=== PATIENT | female | born 1995 | race Caucasian/White ===

== ENCOUNTER 2017-06-06 13:21 | Emergency (ER) | payer OTHER ==
[~2017-06-06] VITALS: Ht 172.7 cm; Wt 68.0 kg
[2017-06-06 13:23] VITALS: BP 117/64
--- NOTE | 2017-06-06 13:41 | NUR ---
SWAB DONE FOR STREP AND PUT IN THE SPECIMEN CONTAINER
--- NOTE | 2017-06-06 13:48 | NUR ---
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 AAOX4 WITH EVEN AND STEADY GAIT; LUNGS CLEAR BL; HR EVEN AND REGULAR; PATIENT STATES PAIN OF 8/10 AT THIS TIME; PATIENT POSITIONED FOR COMFORT; ER MD MADE AWARE OF PT STATUS.
[2017-06-06 14:00] VITALS: BP 112/68
== END 2017-06-06 14:00 | disposition home or self-care (01) ==
LOC: MED 13:21
DX: J02.0 Streptococcal pharyngitis (principal)
CPT/HCPCS: 87081; 99283

== ENCOUNTER 2017-10-18 11:49 | Emergency (ER) | payer OTHER ==
[~2017-10-18] VITALS: Ht 172.7 cm; Wt 70.3 kg
[2017-10-18 12:11] VITALS: BP 119/68
[2017-10-18 14:36] VITALS: BP 119/68
== END 2017-10-18 14:35 | disposition home or self-care (01) ==
LOC: MED 11:49
DX: N39.0 Urinary tract infection, site not specified (principal); Z88.1 Allergy status to other antibiotic agents; R11.0 Nausea
CPT/HCPCS: 81002; 81025; 99283

== ENCOUNTER 2017-10-24 15:16 | Emergency (ER) | payer OTHER ==
[~2017-10-24] VITALS: Ht 172.7 cm; Wt 68.0 kg
[2017-10-24 15:21] VITALS: BP 116/77
--- NOTE | 2017-10-24 16:18 | NUR ---
Patient ambulated to bed 9. RN evaluating patient at bedside.
--- NOTE | 2017-10-24 16:20 | NUR ---
PT BIB SELF C/O SACRAL PAIN 08/16 S/P MECH FALL 3 WEEKS AGO. AGGREVATED POSITION CHANGE. "I GOT DRUNK AND FELL ONTO MY BUTT AND DIDNT THINK ANYTHING OF IT UNTIL IT STARTED HURTING." VSS; PATIENT POSITIONED FOR COMFORT; HOB ELEVATED; BEDRAILS UP X2; BED DOWN. ER MD MADE AWARE OF PT STATUS.
[2017-10-24 17:52] VITALS: BP 116/77
== END 2017-10-24 17:53 | disposition home or self-care (01) ==
LOC: MED 15:16
DX: M53.3 Sacrococcygeal disorders, not elsewhere classified (principal); Z88.1 Allergy status to other antibiotic agents
CPT/HCPCS: 72220; 99284

== ENCOUNTER 2017-10-28 02:49 | Emergency (ER) | payer OTHER ==
[~2017-10-28] VITALS: Ht 172.7 cm; Wt 68.0 kg
[2017-10-28 02:54] VITALS: BP 108/60
--- NOTE | 2017-10-28 02:54 | NUR ---
TO BED # 9 AMBULATORY, REPORT GIVEN TO NIKHIL RN
--- NOTE | 2017-10-28 03:00 | NUR ---
PATIENT IS A 22 Y/O FEMALE WHO PRESENTS TO THE ED C/O URINARY BURNING. PT STATES THAT SHE WAS SEEN LAST WEEK AND FINISHED ANTIBIOTIC RX, AND NOW RETURNED. PT REPORTS 10/10 URINARY BURNING PAIN THAT DOES NOT RADIATE. PT DENIES CP, SOB, N/V/D. PT AWAKE AND ALERT, RR EVEN/UNLABORED. PT REPOSITIONED FOR COMFORT, BED IN LOWEST POSITION. ER MD DR. ANDREWS NOTIFIED. WILL CONTINUE TO MONITOR.
[2017-10-28] MEDS ORDERED: KETOROLAC 60 MG/2 ML VIAL IM ONE (03:15)
[2017-10-28 03:30] VITALS: BP 119/65
--- NOTE | 2017-10-28 03:30 | NUR ---
Patient discharged with v/s stable. Written and verbal after care instructions given and explained. Patient alert, oriented and verbalized understanding of instructions. Ambulatory with steady gait. All questions addressed prior to discharge. ID band removed. Patient advised to follow up with PMD. Rx of MOTRIN 800MG AND CIPRO 500MG given. Patient educated on indication of medication including possible reaction and side effects. Opportunity to ask questions provided and answered.
== END 2017-10-28 03:30 | disposition home or self-care (01) ==
LOC: MED 02:49
DX: N39.0 Urinary tract infection, site not specified (principal); Z88.1 Allergy status to other antibiotic agents
CPT/HCPCS: 81002; 81025; 87086; 96372; 99283; J1885

== ENCOUNTER 2017-11-29 12:44 | Inpatient (IN) | payer OTHER ==
[~2017-11-29] VITALS: Ht 172.7 cm; Wt 67.8 kg
[2017-11-29 13:06] VITALS: BP 111/80
--- NOTE | 2017-11-29 13:10 | NUR ---
22 Y/O F W/C/O LEFT LOWER QUADRANT ABDOMINAL PAIN & LEFT LOWER BACK PAIN X 2 HOURS AGO. PT DENIES N/V/D; SKIN IS PINK/WARM/DRY; AAOX4, PERRL, WITH EVEN AND STEADY GAIT; LUNGS CLEAR BL, BREATHING UNLABORED; HR EVEN AND REGULAR, BL PERIPHERAL PULSES PRESENT; BS ACTIVE X4, NO TENDERNESS TO PALPATION, NO HEPATOSPLENOMEGALLY PALPATED, RESONANT TO PERCUSSION; PT DENIES ANY FEVER, CP, SOB, OR COUGH AT THIS TIME; PT STATES 10/10 PAIN AT THIS TIME; VSS; PATIENT POSITIONED FOR COMFORT; HOB ELEVATED; BEDRAILS UP X2; BED DOWN.
--- NOTE | 2017-11-29 13:12 | NUR ---
PT AMBULATES TO BED 6
--- NOTE | 2017-11-29 13:32 | NUR ---
PT REFUSING TO PROVIDE URINE SAMPLE AT THIS TIME
[2017-11-29] MEDS ORDERED: NACL 0.9% 1,000 ML IV SCH (14:02)
[2017-11-29] MEDS ORDERED: KETOROLAC 30 MG/ML VIAL IVP ONE (14:05)
[2017-11-29] MEDS ORDERED: ONDANSETRON 4 MG/2 ML VIAL IVP ONE (14:05)
[2017-11-29 14:36] LABS: BASOPHILS % (AUTO) 0.2 % (0.0-2.0); EOSINOPHILS # (AUTO) 0.1 K/uL (0-0.4); EOSINOPHILS % (AUTO) 0.6 % (0.0-4.0); HEMATOCRIT 42.2 % (36-48); LYMPHOCYTES # (AUTO) 1.3 K/uL (2.5-16.5); LYMPHOCYTES % (AUTO) 9.5 % (20.5-51.1); MEAN CORPUSCULAR HEMOGLOBIN 30 pg (27-31); MEAN CORPUSCULAR HGB CONC 33 g/dL (33-37); MEAN CORPUSCULAR VOLUME 90.9 fL (80-94); MONOCYTES # (AUTO) 0.6 K/uL (0.8-1.0); MONOCYTES % (AUTO) 4.6 % (1.7-9.3); NEUTROPHILS # (AUTO) 11.8 K/uL (1.8-7.7); NEUTROPHILS % (AUTO) 85.1 % (42.2-75.2); PLATELET COUNT (AUTO) 188 K/uL (140-450); RED BLOOD CELL COUNT(AUTO) 4.64 MIL/uL (4.20-5.40); RED CELL DISTRIBUTION WIDTH 12.9 % (11.6-13.7); WHITE BLOOD COUNT (AUTO) 13.8 K/uL (4.8-10.8)
--- NOTE | 2017-11-29 15:00 | NUR ---
NO S/S OF DISTRESS, VSS, DENIES PAIN.
[2017-11-29 15:54] LABS: APPEARANCE,URINE CLOUDY (CLEAR); COLOR,URINE YELLOW (YELLOW)
[2017-11-29 15:55] LABS: BLOOD, URINE 3+ (NEGATIVE); UGLUCOSE NEGATIVE (NEGATIVE)
[2017-11-29 15:56] LABS: BILIRUBIN,URINE NEGATIVE (NEGATIVE); LEUKOCYTE ESTERASE ,URINE 3+ (NEGATIVE); NITRITE, URINE NEGATIVE (NEGATIVE)
[2017-11-29 16:03] LABS: RBC,URINE >100 /HPF (0-5)
[2017-11-29 16:19] LABS: ANION GAP 10.5 (8-16); CARBON DIOXIDE 26.6 mmol/L (21-32); CREATININE 1.1 mg/dL (0.6-1.3); POTASSIUM 4.1 mmol/L (3.5-5.1)
[2017-11-29 16:20] LABS: ALBUMIN 3.9 g/dL (3.4-5.0)
[2017-11-29] MEDS ORDERED: LEVOFLOXACIN 500 MG/D5W PREMIX 100 ML IV ONE (16:45)
[2017-11-29] MEDS ORDERED: ACETAMINOPHEN 325 MG TAB PO PRN (18:05)
[2017-11-29] MEDS ORDERED: HYDROcodone/APAP 5/325 MG 1 TAB TAB PO PRN (18:05)
[2017-11-29] MEDS ORDERED: ONDANSETRON 4 MG/2 ML VIAL IVP PRN (18:05)
[2017-11-29] MEDS ORDERED: MORPHINE SULFATE 4 MG/ML SYR IVP PRN (18:05)
[2017-11-29] MEDS ORDERED: KETOROLAC 15 MG/ML VIAL IVP PRN (18:10)
--- NOTE | 2017-11-29 18:33 | NUR ---
PT TAKEN TO THE FLOOR VIA WHEELCHAIR BY DYLLAN CAMERON
--- NOTE | 2017-11-29 18:35 | NUR ---
Patient will be admitted to care of DR. CROFT. Admited to MED/SURG. Will go to [id number]. Belongings list completed. Report to DYLLAN GARCIA AT [facility], PT IS IN STABLE CONDITION AT THIS TIME.
[2017-11-29 19:00] VITALS: BP 115/71
--- NOTE | 2017-11-29 19:00 | NUR ---
ADMITTED A 22 F FROM ER. CAME DUE TO HAVING ABDOMINAL PAIN X1 DAY. AWAKE,ALERT AND ORIENTED X4. AMBULATORY. MED SURG PT. DENIES ANY PAIN AT THIS TIME. WITH HL ON THE LT FA#[id number]. CLEAR AND PATENT. SKIN INTACT. PLAN OF CARE DISCUSSED AND VERBALIZED UNDERSTANDING. ON REGULAR DIET. ORIENTED TO HOSPITAL ROUTINES. BED ON LOW POSITION , CALL LIGHT PLACED WITHIN EASY REACH. PT SAID SHE DOESN'T HAVE ANY MEDICAL PROBLEM AND NO SURGERY IN THE PAST. WILL FOLLOW UP ANY ADMIT ORDERS.
--- NOTE | 2017-11-29 20:00 | NUR ---
INSTRUCTED PT THE NEED TO STRAIN ALL URINE FOR STONES. CONTAINER PROVIDED. VERBALIZED UNDERSTANDING.
[2017-11-29] MEDS: NACL 0.9% 1,000 ML IV SCH (20:50)
[2017-11-29] MEDS ORDERED: INFLUENZA VIRUS VACCINE QUAD 0.5 ML SYR IMVAC PRN (22:05)
--- NOTE | 2017-11-29 23:30 | NUR ---
PT VOIDED @ 150 L URINE. STRAINED BUT NO STONES NOTED. WILL CONTINUE TO MONITOR.
[2017-11-29 23:50] VITALS: BP 98/56
--- NOTE | 2017-11-30 01:00 | NUR ---
PT STILL AWAKE. NO C/O ANY PAIN NOR DISCOMFORT NOTED.
[2017-11-30] MEDS: NACL 0.9% 1,000 ML IV SCH ×3 (02:03→13:22)
--- NOTE | 2017-11-30 03:00 | NUR ---
MADE ROUNDS. PT IS ASLEEP. IVF INFUSING WELL.
--- NOTE | 2017-11-30 05:18 | NUR ---
EMPTIED X2 URINE VOIDED, NO CALCULUS NOTED. WILL STILL CONTINUE TO MONITOR.
[2017-11-30 05:52] LABS: BASOPHILS % (AUTO) 0.3 % (0.0-2.0); EOSINOPHILS # (AUTO) 0.2 K/uL (0-0.4); EOSINOPHILS % (AUTO) 2.5 % (0.0-4.0); HEMATOCRIT 34.4 % (36-48); HEMOGLOBIN 11.7 g/dL (12.0-16.0); LYMPHOCYTES # (AUTO) 3.6 K/uL (2.5-16.5); MEAN CORPUSCULAR HEMOGLOBIN 31 pg (27-31); MEAN CORPUSCULAR HGB CONC 34 g/dL (33-37); MEAN CORPUSCULAR VOLUME 91.4 fL (80-94); MONOCYTES # (AUTO) 0.7 K/uL (0.8-1.0); MONOCYTES % (AUTO) 8.5 % (1.7-9.3); NEUTROPHILS # (AUTO) 4.2 K/uL (1.8-7.7); NEUTROPHILS % (AUTO) 47.7 % (42.2-75.2); PLATELET COUNT (AUTO) 157 K/uL (140-450); RED BLOOD CELL COUNT(AUTO) 3.76 MIL/uL (4.20-5.40); RED CELL DISTRIBUTION WIDTH 12.8 % (11.6-13.7); WHITE BLOOD COUNT (AUTO) 8.8 K/uL (4.8-10.8)
[2017-11-30 07:05] LABS: ALBUMIN 2.8 g/dL (3.4-5.0); TOTAL BILIRUBIN 0.7 mg/dL (0.0-1.0)
--- NOTE | 2017-11-30 07:15 | NUR ---
RECEIVED PATIENT REPORT AT BEDSIDE. PATIENT AWAKE, ALERT AND ORIENTED. PATIENT DENIES PAIN AT THIS TIME. NO S/S OF DISTRESS. WILL CONTINUE TO MONITOR
--- NOTE | 2017-11-30 07:27 | NUR ---
ENDORSED PT IN STABLE CONDITION TO AM NURSE FOR CONTINUITY OF CARE.
[2017-11-30 07:58] VITALS: BP 102/57
[2017-11-30] MEDS ORDERED: TAMSULOSIN 0.4 MG CAP PO SCH (08:30)
--- NOTE | 2017-11-30 08:35 | NUR ---
PATIENT HAS BEEN SCREENED AND CATEGORIZED MODERATE NUTRITION RISK. PATIENT WILL BE SEEN WITHIN 3-5 DAYS OF ADMISSION. 12/03/17 12/04/[address]
--- NOTE | 2017-11-30 11:00 | NUR ---
PATIENT VOIDED. URINE STRAINED. NO STONE NOTED
--- NOTE | 2017-11-30 13:42 | NUR ---
CM NOTE ADMISSION CHART REVIEW DONE. INITIAL REVIEW FAXED TO [facility] [phone] [place] # [phone].
[2017-11-30] MEDS ORDERED: ONDA4FIL4 MM (14:13)
[2017-11-30] MEDS ORDERED: TAMS0.4C96 PO (14:13)
[2017-11-30] MEDS ORDERED: CIPR500T4 PO (14:13)
--- NOTE | 2017-11-30 14:45 | NUR ---
PATIENT SEEN BY DR CROFT
--- NOTE | 2017-11-30 15:00 | NUR ---
PATIENT DISCHARGED TO HOME. DISCHARGE INSTRUCTIONS AND DISCHARGE PRESCRIPTIONS GIVEN. PATIENT VERBALIZED UNDERSTANDING. IV LINE DISCONTINUED. PATIENT LEFT WITH ALL HER BELONGINGS AND DISCHARGE PAPERS. PATIENT LEFT IN STABLE CONDITION.
[2017-11-30] MEDS ORDERED: LEVOFLOXACIN 500 MG/D5W PREMIX 100 ML IV SCH (17:00)
== END 2017-11-30 15:00 | disposition home or self-care (01) | DRG 465 ==
LOC: MED 12:44 → MTU 18:08
PROVIDERS: ADMIT Hospitalist; ATTEND Hospitalist
PROC: 3E0234Z Introduction of Serum, Toxoid and Vaccine into Muscle, Percutaneous Approach (ICD-10-PCS; principal; 2017-11-30)
DX: N20.0 Calculus of kidney (principal); R65.10 Systemic inflammatory response syndrome (SIRS) of non-infectious origin without acute organ dysfunction; N39.0 Urinary tract infection, site not specified; Z88.1 Allergy status to other antibiotic agents; Z23 Encounter for immunization
CPT/HCPCS: 36415; 76770; 80053; 81001; 81025; 83605; 85025; 87040; 87081; 87086; 87186; 90658; 96361; 96365; 96375; 99285; J1885; J1956; J2405; J7030; Q0092

== ENCOUNTER 2017-12-21 16:57 | Emergency (ER) | payer OTHER ==
[~2017-12-21] VITALS: Ht 172.7 cm; Wt 69.6 kg
[~2017-12-21 16:57] MED LIST: CIPR500T4 PO; ONDA4FIL4 MM; TAMS0.4C96 PO
[2017-12-21 17:05] VITALS: BP 124/84
[2017-12-21] MEDS ORDERED: NACL 0.9% 1,000 ML IV SCH (17:58)
[2017-12-21] MEDS ORDERED: ONDANSETRON 4 MG/2 ML VIAL IVP ONE ×2 (18:00→19:15)
[2017-12-21 18:24] LABS: BASOPHILS % (AUTO) 0.2 % (0.0-2.0); EOSINOPHILS # (AUTO) 0.2 K/uL (0-0.4); HEMATOCRIT 40.3 % (36-48); HEMOGLOBIN 13.4 g/dL (12.0-16.0); LYMPHOCYTES # (AUTO) 2.5 K/uL (2.5-16.5); LYMPHOCYTES % (AUTO) 25.1 % (20.5-51.1); MEAN CORPUSCULAR HEMOGLOBIN 31 pg (27-31); MEAN CORPUSCULAR HGB CONC 33 g/dL (33-37); MEAN CORPUSCULAR VOLUME 91.4 fL (80-94); MONOCYTES # (AUTO) 0.6 K/uL (0.8-1.0); MONOCYTES % (AUTO) 6.1 % (1.7-9.3); NEUTROPHILS # (AUTO) 6.6 K/uL (1.8-7.7); NEUTROPHILS % (AUTO) 66.6 % (42.2-75.2); PLATELET COUNT (AUTO) 193 K/uL (140-450); RED CELL DISTRIBUTION WIDTH 12.9 % (11.6-13.7); WHITE BLOOD COUNT (AUTO) 9.9 K/uL (4.8-10.8)
[2017-12-21 18:39] LABS: ALBUMIN 3.5 g/dL (3.4-5.0); CARBON DIOXIDE 29.1 mmol/L (21-32); POTASSIUM 4.1 mmol/L (3.5-5.1); TOTAL BILIRUBIN 0.5 mg/dL (0.0-1.0)
[2017-12-21 19:39] VITALS: BP 105/48
[2017-12-21 19:48] LABS: APPEARANCE,URINE CLEAR (CLEAR); BILIRUBIN,URINE NEGATIVE (NEGATIVE); BLOOD, URINE NEGATIVE (NEGATIVE); COLOR,URINE YELLOW (YELLOW); LEUKOCYTE ESTERASE ,URINE NEGATIVE (NEGATIVE); NITRITE, URINE NEGATIVE (NEGATIVE); UGLUCOSE NEGATIVE (NEGATIVE)
== END 2017-12-21 19:37 | disposition home or self-care (01) ==
LOC: MED 16:57
DX: O21.0 Mild hyperemesis gravidarum (principal); Z79.899 Other long term (current) drug therapy; Z88.1 Allergy status to other antibiotic agents; Z3A.09 9 weeks gestation of pregnancy
CPT/HCPCS: 36415; 80053; 81003; 85025; 96361; 96374; 96375; 99284; J2405; J7030

== ENCOUNTER 2017-12-25 14:12 | Emergency (ER) | payer OTHER ==
[~2017-12-25] VITALS: Ht 172.7 cm; Wt 69.0 kg
[2017-12-25 14:25] VITALS: BP 119/60
[2017-12-25 15:06] LABS: BASOPHILS % (AUTO) 0.2 % (0.0-2.0); EOSINOPHILS # (AUTO) 0.2 K/uL (0-0.4); EOSINOPHILS % (AUTO) 1.6 % (0.0-4.0); HEMATOCRIT 40.6 % (36-48); HEMOGLOBIN 13.7 g/dL (12.0-16.0); LYMPHOCYTES # (AUTO) 1.7 K/uL (2.5-16.5); LYMPHOCYTES % (AUTO) 17.3 % (20.5-51.1); MEAN CORPUSCULAR HEMOGLOBIN 31 pg (27-31); MEAN CORPUSCULAR HGB CONC 34 g/dL (33-37); MEAN CORPUSCULAR VOLUME 91.2 fL (80-94); MONOCYTES # (AUTO) 0.5 K/uL (0.8-1.0); MONOCYTES % (AUTO) 5.1 % (1.7-9.3); NEUTROPHILS # (AUTO) 7.3 K/uL (1.8-7.7); NEUTROPHILS % (AUTO) 75.8 % (42.2-75.2); PLATELET COUNT (AUTO) 194 K/uL (140-450); RED BLOOD CELL COUNT(AUTO) 4.45 MIL/uL (4.20-5.40); RED CELL DISTRIBUTION WIDTH 12.7 % (11.6-13.7); WHITE BLOOD COUNT (AUTO) 9.7 K/uL (4.8-10.8)
[2017-12-25 15:22] LABS: ANION GAP 14.9 (8-16); CARBON DIOXIDE 24.9 mmol/L (21-32); CREATININE 0.9 mg/dL (0.6-1.3); POTASSIUM 3.8 mmol/L (3.5-5.1)
[2017-12-25 15:40] LABS: BILIRUBIN,URINE SMALL (NEGATIVE); BLOOD, URINE TRACE-I (NEGATIVE); COLOR,URINE YELLOW (YELLOW); LEUKOCYTE ESTERASE ,URINE TRACE (NEGATIVE); NITRITE, URINE NEGATIVE (NEGATIVE); UGLUCOSE NEGATIVE (NEGATIVE)
[2017-12-25 15:55] LABS: RBC,URINE NONE SEEN /HPF (0-5); WBC,URINE 0-5 (RARE) /HPF (0-5)
[2017-12-25 15:56] LABS: APPEARANCE,URINE CLEAR (CLEAR); URINE AMORPHOUS URATE 3+ /HPF (None Seen)
[2017-12-25 17:15] VITALS: BP 114/57
== END 2017-12-25 17:14 | disposition home or self-care (01) ==
LOC: MED 14:12
DX: O23.41 Unspecified infection of urinary tract in pregnancy, first trimester (principal); O21.0 Mild hyperemesis gravidarum; Z3A.01 Less than 8 weeks gestation of pregnancy; Z79.899 Other long term (current) drug therapy; Z79.2 Long term (current) use of antibiotics; Z88.1 Allergy status to other antibiotic agents
CPT/HCPCS: 36415; 76801; 80048; 81001; 84702; 85025; 86900; 86901; 99285; Q0092